=== PATIENT | male | born 1970 | race Caucasian/White ===

== ENCOUNTER 2025-01-31 07:23 | Inpatient (IN) ==
[2025-01-26 16:57] LABS: Basophils # (Auto) 0.02 K/mcL (0.00-0.30); Basophils % (Auto) 0.3 % (0.0-2.0); Eosinophils # (Auto) 0.24 K/mcL (0.00-0.70); Eosinophils % (Auto) 3.2 % (0.0-7.0); Hematocrit 43.4 % (40.1-51.0); Hemoglobin 14.6 g/dL (13.7-17.5); Lymphocytes # (Auto) 1.49 K/mcL (1.50-4.80); Lymphocytes % (Auto) 19.8 % (15.5-49.0); Mean Cell Volume 89.9 fL (80.0-100.0); Mean Corpuscular HGB Conc 33.6 g/dL (31.0-36.0); Mean Platelet Volume 10.9 fL (8.8-12.5); Monocytes # (Auto) 0.67 K/mcL (0.10-0.90); Monocytes % (Auto) 8.9 % (1.0-12.0); Neutrophils % (Auto) 67.5 % (38.0-78.0); Platelet Count 283 K/mcL (140-440); RBC 4.83 M/mcL (4.63-6.08); WBC 7.5 K/mcL (4.5-11.0)
[2025-01-26 17:16] LABS: Prothrombin Time 14.2 sec (11.9-14.5)
[2025-01-26 17:18] LABS: ALT/SGPT 49 U/L (<40); AST/SGOT 31 U/L (<40); Albumin 4.6 gm/dL (3.2-5.2); Albumin/Globulin Ratio 1.7 (1.0-2.3); Alkaline Phosphatase 89 U/L (39-117); Bilirubin,Total 0.5 mg/dL (0.1-1.0); Blood Urea Nitrogen 20 mg/dL (6-20); Calcium 9.8 mg/dL (8.6-10.4); Carbon Dioxide 23 mmol/L (22-30); Chloride 107 mmol/L (96-108); Globulin 2.7 gm/dL (2.2-3.7); Glomerular Filtration Rate 85; Glucose 105 mg/dL (70-105); Sodium 141 mmol/L (133-145)
[2025-01-26 17:48] LABS: Appearance,Urine CLEAR (Clear); Bilirubin,Urine Negative (Negative); Color,Urine YELLOW; Glucose,Urine (UA) Negative (Negative); Ketones,Urine Negative (Negative); Leukocyte Esterase,Urine Negative /uL (Negative); Mucus,Urine FEW /hpf; Nitrate,Urine Negative (Negative); Protein,Urine Negative (Negative); Specific Gravity,Urine 1.025 (1.000-1.035); Urine Hyaline Cast 3 /lph (0-2); Urine RBC 2 /hpf (0-3); Urine Squamous Epithelial Cell < 1 /hpf (0-4); Urine WBC 1 /hpf (0-4); Urobilinogen,Urine Negative
[2025-01-26 22:04] LABS: Estimated Average Glucose(eAG) 120 mg/dL; Hemoglobin A1C 5.8 % Hgb (4.0-6.0)
[2025-01-31] MEDS ORDERED: IPRATROPIUM/ALBUTEROL 3 ML AMPUL.NEB NEB PRN ×2 (07:30→11:10)
[2025-01-31] MEDS: SCOPOLAMINE 1 PATCH PATCH TOPICAL PRN (07:53)
[2025-01-31] MEDS ORDERED: DEXAMETHASONE 10 MG/ML VIAL ONE (08:41)
[2025-01-31] MEDS ORDERED: TRANEXAMIC ACID 1,000 MG/10 ML VIAL ONE (08:41)
[2025-01-31] MEDS ORDERED: LIDOCAINE 2% PF 5 ML VIAL ONE (08:41)
[2025-01-31] MEDS ORDERED: GLYCOPYRROLATE 0.2 MG/ML VIAL IV ONE (08:41)
[2025-01-31] MEDS ORDERED: ONDANSETRON 4 MG/2 ML VIAL ONE (08:41)
[2025-01-31] MEDS ORDERED: ROPIVACAINE HCL/PF 30 ML VIAL IJ ONE (08:46)
[2025-01-31] MEDS ORDERED: MAGNESIUM SULFATE 2 GM/50 ML BAG IV ONE (09:44)
[2025-01-31] MEDS ORDERED: KETAMINE 50 MG/ML ML ONE (09:44)
[2025-01-31] MEDS ORDERED: PROPOFOL 200 MG/20 ML VIAL IV ONE ×2 (09:45→11:08)
[2025-01-31] MEDS ORDERED: FAMOTIDINE/PF 20 MG/2 ML VIAL IV ONE (10:12)
[2025-01-31] MEDS: ceFAZolin 2 GM in DEXTROSE 5% IN WATER 50 ML IV SCH (10:17)
[2025-01-31] MEDS ORDERED: fentaNYL 100 MCG/2 ML VIAL ONE (10:36)
[2025-01-31] MEDS ORDERED: HYDROmorphone 0.5 MG/0.5 ML SYRINGE ONE (10:45)
[2025-01-31] MEDS ORDERED: ONDANSETRON 4 MG/2 ML VIAL IV PRN ×2 (11:10→11:26)
[2025-01-31] MEDS ORDERED: fentaNYL 100 MCG/2 ML VIAL IV PRN (11:10)
[2025-01-31] MEDS: 0.9 % SODIUM CHLORIDE 9 ML, KETOROLAC 30 MG, ROPIVACAINE HCL/PF 49.5 ML, EPINEPHrine 0.... IJ SCH (11:23)
[2025-01-31] MEDS ORDERED: MAGNESIUM HYDROXIDE 30 ML ORAL.SUSP PO PRN (11:26)
[2025-01-31] MEDS ORDERED: BENZOCAINE/MENTHOL 1 LOZENGE PO PRN (11:26)
[2025-01-31] MEDS ORDERED: TEMAZEPAM 15 MG CAPSULE PO PRN (11:26)
[2025-01-31] MEDS ORDERED: ACETAMINOPHEN 325 MG TABLET PO PRN ×2 (11:26→16:00)
[2025-01-31] MEDS ORDERED: HYDROcodone/APAP 10/325MG TABLET PO PRN (11:26)
[2025-01-31] MEDS: METHOCARBAMOL 1,000 MG/10 ML VIAL IV PRN (11:55)
[2025-01-31] MEDS: TRANEXAMIC ACID 1,000 MG/10 ML VIAL IV ONE (11:56)
[2025-01-31] MEDS: ACETAMINOPHEN 500 MG TABLET PO SCH (12:33)
[2025-01-31] MEDS: oxyCODONE 10 MG TAB.ER.12H PO SCH (12:33)
[2025-01-31] MEDS: PREGABALIN 75 MG CAPSULE PO SCH (12:33)
[2025-01-31] MEDS: CELECOXIB 200 MG CAPSULE PO SCH (12:33)
[2025-01-31] MEDS: 0.9 % SODIUM CHLORIDE 1,000 ML IV SCH (12:34)
[2025-01-31] MEDS: HYDROmorphone 1 MG/ML SYRINGE IV PRN (12:38)
[2025-01-31] MEDS: 0.9 % SODIUM CHLORIDE 10 ML SYRINGE IV SCH (13:05)
[2025-01-31] MEDS: KETOROLAC 15 MG/ML VIAL IV PRN (14:05)
[2025-01-31] MEDS: ceFAZolin 1 GM VIAL IV SCH (17:15)
[2025-01-31] MEDS ORDERED: HYDROmorphone 2 MG TABLET PO PRN (18:44)
[2025-01-31] MEDS: ACETAMINOPHEN 500 MG TABLET PO PRN (20:07)
[2025-01-31] MEDS: [UNRECOGNIZED DRUG - REMARK] NAS SCH (20:07)
[2025-01-31] MEDS: DOCUSATE SODIUM 100 MG CAPSULE PO SCH (20:07)
[2025-01-31] MEDS: ASPIRIN 81 MG TAB.CHEW CHEWED SCH (20:07)
[2025-02-01 07:33] VITALS: TEMP 97.8; O2SAT 95
[2025-02-01] MEDS: OMEPRAZOLE 20 MG CAPSULE PO SCH (08:04)
[2025-02-01] MEDS: LOSARTAN 50 MG TABLET PO SCH (08:05)
== END 2025-02-01 10:28 | disposition home or self-care (01) | DRG 489 ==
LOC: MEDSUR 07:23
PROVIDERS: ADMIT Orthopaedic Surgery; ATTEND Orthopaedic Surgery